=== PATIENT | male | born 1995 | race African-American/Black ===

== ENCOUNTER 2022-07-13 12:32 | Emergency (ER) | payer OTHER, SELFPAY ==
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
[2022-07-13 12:37] VITALS: BP 187/95; PULSE 87; RESP 18; TEMP 37.1; O2SAT 94
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
[2022-07-13] MEDS: IBUPROFEN 600 MG TABLET PO (14:16)
[2022-07-13 15:30] VITALS: BP 180/90; PULSE 80; RESP 16; O2SAT 97
== END 2022-07-13 15:30 | disposition home or self-care (01) ==
PROVIDERS: Emergency Provider Emergency Medicine
DX: S16.1XXA Strain of muscle, fascia and tendon at neck level, initial encounter (principal); S70.02XA Contusion of left hip, initial encounter; S40.012A Contusion of left shoulder, initial encounter; V43.51XA Car driver injured in collision with sport utility vehicle in traffic accident, initial encounter
CPT/HCPCS: 71046; 72125; 73030; 73080; 73502; 99284; A9270